=== PATIENT | male | born 1955 | race Caucasian/White ===

== ENCOUNTER → 2017-07-15 | Outpatient (CLI) | payer BC ==
[~2017-07-15] MED LIST: ACET325T14 PO; ALBU18HF INH; ALLO100T30 PO; APIX5TAB PO; ASPI-496 PO; ASPI-621 PO; DOCU-131 PO; FAMO-79 PO; FENO160T PO; FEXO1TAB29 PO; GABA300C10 PO; HYDR-3307 PO; LEVO112T4 PO; LOSA25TA2 PO; LOSA25TA5 PO; LOSA50TA6 PO; METO25TA35 PO; MONT10TA9 PO; OXYM30SP NAS; PANT40TA3 PO; WARF2.5T PO
== END | disposition home or self-care (01) ==
LOC: CVU 12:01
PROVIDERS: ATTEND Internal Medicine Cardiovascular Disease
DX: I07.1 Rheumatic tricuspid insufficiency (principal); I10 Essential (primary) hypertension; E11.9 Type 2 diabetes mellitus without complications
CPT/HCPCS: 93306

== ENCOUNTER → 2018-10-27 | Outpatient (CLI) | payer BC ==
[~2018-10-27] MED LIST changes: -ASPI-621 PO; +ASPI81TA45 PO; -LOSA25TA5 PO; +LOSA25TA6 PO; -LOSA50TA6 PO; +LOSA50TA7 PO
== END | disposition home or self-care (01) ==
LOC: CVU 07:09
PROVIDERS: ATTEND Internal Medicine Cardiovascular Disease
DX: I08.3 Combined rheumatic disorders of mitral, aortic and tricuspid valves (principal); I12.9 Hypertensive chronic kidney disease with stage 1 through stage 4 chronic kidney disease, or unspecified chronic kidney disease; N18.9 Chronic kidney disease, unspecified; I71.4 Abdominal aortic aneurysm, without rupture; E78.5 Hyperlipidemia, unspecified; Z86.718 Personal history of other venous thrombosis and embolism; Z98.890 Other specified postprocedural states; Z95.2 Presence of prosthetic heart valve
CPT/HCPCS: 0399T; 93306; 93978

== ENCOUNTER → 2019-05-18 | Outpatient (CLI) | payer BC ==
[~2019-05-18] MED LIST changes: +LOSA25TA25 PO; -LOSA25TA6 PO; +LOSA50TA14 PO; -LOSA50TA7 PO
== END | disposition home or self-care (01) ==
LOC: CVU 08:44
PROVIDERS: ATTEND Internal Medicine Cardiovascular Disease
DX: I37.1 Nonrheumatic pulmonary valve insufficiency (principal); I74.5 Embolism and thrombosis of iliac artery; N18.9 Chronic kidney disease, unspecified; I71.4 Abdominal aortic aneurysm, without rupture
CPT/HCPCS: 0399T; 93306; 93978